=== PATIENT | male | born 1995 | race Caucasian/White ===

== ENCOUNTER 2016-12-26 22:00 | Emergency (ER) | payer BC ==
[~2016-12-26] VITALS: Ht 175.3 cm; Wt 63.5 kg
[~2016-12-26 22:00] MED LIST: DIVALPROEX SOD250 M1 PO; NO MEDS
[2016-12-26 22:28] LABS: MCH 31.8 PG (29.0-34.0); MCHC 35.5 G/DL (30.0-36.0); MCV 89.6 FL (86-99); MEAN PLAT.VOLUME 10.8 uM^3 (9.0-12.4); PLATELET COUNT 112 K/uL (156-360); RBC DIS.WIDTH-CV 11.9 % (11.8-14.6); RBC DIS.WIDTH-SD 38.1 % (39-53); RED BLOOD COUNT 4.69 M/uL (4.00-5.50); WHITE BLOOD COUNT 6.2 K/uL (4.1-10.2)
[2016-12-26 22:47] LABS: CHLORIDE 103 mEq/L (99-109); POTASSIUM 3.7 mEq/L (3.7-5.4); SODIUM 138 mEq/L (136-147)
[2016-12-26 22:50] LABS: GLUCOSE 137 mg/dL (70-99)
[2016-12-26 22:51] LABS: ANION GAP 14 MEQ/L (2-14); TOTAL BILIRUBIN 0.4 mg/dL (0.0-1.0)
[2016-12-26 22:52] LABS: SERUM ETHYL ALCOHOL 31 mg/dL
[2016-12-26 22:53] LABS: ALKALINE PHOSPHATASE 59 IU/L (3-129); GFR ESTIMATE (CALCULATED) > 59 mL/min/
[2016-12-26 22:54] LABS: UREA NITROGEN (BUN) 11 mg/dL (9-23)
[2016-12-26 22:58] LABS: ADD MIUA? NO; BILIRUBIN NEGATIVE; BLOOD NEGATIVE; COLOR YELLOW ((YELLOW)); GLUCOSE (STRIP) NEGATIVE; KETONES NEGATIVE; LEUKOCYTES NEGATIVE; NITRITE NEGATIVE; PROTEIN (STRIP) NEGATIVE; SPECIFIC GRAVITY 1.011 (1.000-1.030); UROBILINOGEN 0.2 MG/DL (0.2-1.0)
[2016-12-26 23:06] LABS: AMPHETAMINE NEGATIVE (500 ng/mL); BARBITURATES NEGATIVE (200 ng/mL); BENZODIAZEPINES NEGATIVE (150 ng/mL); COCAINE NEGATIVE (150 ng/mL); INTERNAL CONTROLS VALID? YES; METHADONE NEGATIVE (200 ng/mL); METHAMPHETAMINE NEGATIVE (500 ng/mL); OPIATES (MORPHINE) NEGATIVE (100 ng/mL); OXYCODONE NEGATIVE (100 ng/mL); PHENCYCLIDINE NEGATIVE (25 ng/mL); PROPOXYPHENE NEGATIVE (300 ng/mL); THC CANNABINOIDS PRESUMPTIVE POSITIVE (50 ng/mL); TRICYCLIC ANTIDEPRESSANTS NEGATIVE (300 ng/mL)
[2016-12-26 23:07] LABS: ADD MEDTOX COMMENT Y
[2016-12-27 00:31] VITALS: BP 129/76
== END 2016-12-27 00:25 | disposition home or self-care (01) ==
LOC: EME 22:00
PROVIDERS: Emergency Medicine
DX: F32.9 Major depressive disorder, single episode, unspecified (principal); F43.24 Adjustment disorder with disturbance of conduct; S60.812A Abrasion of left wrist, initial encounter; W26.0XXA Contact with knife, initial encounter; F10.99 Alcohol use, unspecified with unspecified alcohol-induced disorder; Y90.1 Blood alcohol level of 20-39 mg/100 ml
CPT/HCPCS: 80053; 81003; 84999; 85027; 90837; 99281; 99284; G0480